=== PATIENT | male | born 1970 | race Caucasian/White ===

== ENCOUNTER 2016-10-16 08:21 | Day surgery (SDC) | payer OTHER ==
[~2016-10-16 08:21] MED LIST: Lidocaine Topical 2% 30 mL Jelly ONE
== END 2016-10-16 23:59 | disposition home or self-care (01) ==
LOC: END 08:21
PROVIDERS: ATTEND Internal Medicine Gastroenterology
DX: R13.10 Dysphagia, unspecified (principal)